=== PATIENT | male | born 1985 | race Caucasian/White ===

== ENCOUNTER 2017-11-03 15:30 | Emergency (ER) | payer MEDICAID, OTHER ==
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
== END 2017-11-03 16:44 | disposition home or self-care (01) ==
LOC: MADERS 15:30
DX: M25.531 Pain in right wrist (principal); I10 Essential (primary) hypertension; Z91.14 Patient's other noncompliance with medication regimen
CPT/HCPCS: 29125

== ENCOUNTER 2019-07-23 19:15 | Emergency (ER) | payer OTHER ==
[2019-07-23] MEDS ORDERED: Amlodipine 5 MG TAB ONE (20:02)
[2019-07-23] MEDS ORDERED: Amoxicillin/Potassium Clav 875 MG TAB ONE (20:02)
== END 2019-07-23 20:08 | disposition home or self-care (01) ==
LOC: MADERS 19:15
DX: K05.30 Chronic periodontitis, unspecified (principal); I10 Essential (primary) hypertension; H66.92 Otitis media, unspecified, left ear
CPT/HCPCS: 99283

== ENCOUNTER 2021-09-01 20:53 | Emergency (ER) | payer OTHER ==
[2021-09-01 21:57] LABS: #Basophils 0.2 thou/uL (0.0-0.2); #Eosinphils 0.8 thou/uL (0.0-0.7); #Monocytes 0.8 thou/uL (0.11-0.59); #Neutrophils 8.1 thou/uL (1.40-6.50); %Basophils 1.4 % (0.0-1.0); %Eosinophils 6.4 % (0.0-10.0); %Lymphocytes 23.4 % (21.0-51.0); %Monocytes 6.4 % (0.0-10.0); %Neutrophils 62.5 % (42.0-75.0); Hemoglobin 18.6 g/dL (14.0-18.0); Mean Corpuscular HGB CONC 33.5 g/dL (32.0-36.0); Mean Corpuscular Hemoglobin 31.6 pg (27.0-31.0); Mean Corpuscular Volume 94.4 fL (78.0-98.0); Platelet Count 304 thou/uL (130-400); RBC Distribution Width 11.4 % (11.5-14.5); Red Blood Cell (RBC) Count 5.89 mill/uL (4.70-6.10)
[2021-09-01] MEDS ORDERED: Sodium Chloride 0.9% 1,000 ML ONE ×2 (21:58→22:59)
[2021-09-01] MEDS ORDERED: methylPREDNISolone Sod Succ/PF 125 MG/2 ML VIAL ONE (21:58)
[2021-09-01 22:14] LABS: ALT (SGPT) 110 U/L (8-55); AST (SGOT) 64 U/L (5-34); Albumin 4.9 g/dL (3.5-5.0); Alkaline Phosphatase 58 U/L (40-110); Anion Gap 17 mmol/L (10-20); BUN (Urea Nitrogen) 11 mg/dL (8.9-20.6); Bilirubin, Total 1.7 mg/dL (0.2-1.2); Calc. Creatinine Clearance 0 mL/min (70-130); Carbon Dioxide 25 mmol/L (22-29); Chloride 104 mmol/L (98-107); Globulin 3.6 g/dL (2.4-3.5); Glucose 116 mg/dL (70-105); Potassium 4.2 mmol/L (3.5-5.1); Protein, Total 8.5 g/dL (6.0-8.3); Sodium 142 mmol/L (136-145)
[2021-09-01 22:15] LABS: Acetaminophen Less than 10.0 mcg/mL (10.0-30.0); Alcohol Less than 10 mg/dL (Less than 10); Magnesium 1.9 mg/dL (1.6-2.6); Salicylate Less than 8.0 mg/dL (15.0-30.0)
[2021-09-01 22:36] LABS: Amphetamine Not Detected (NotDetected); Barbiturates Screen Not Detected (NotDetected); Benzodiazepine Screen Not Detected (NotDetected); Cocaine Metabolite Screen Not Detected (NotDetected); Medtox Control Line Valid? VALID (VALID); Methadone Not Detected (NotDetected); Methamphetamine Not Detected (NotDetected); Opiate Screen Not Detected (NotDetected); Oxycodone Screen Not Detected (NotDetected); Phencyclidine (PCP) Not Detected (NotDetected); THC/Cannabinoid Screen Detected (NotDetected); Tricyclic Screen Detected (NotDetected)
== END 2021-09-02 00:05 | disposition home or self-care (01) ==
LOC: MADERS 20:53
DX: J06.9 Acute upper respiratory infection, unspecified (principal); Z20.822 Contact with and (suspected) exposure to COVID-19; I10 Essential (primary) hypertension; Z79.899 Other long term (current) drug therapy
CPT/HCPCS: 71045; 80053; 80306; 80307; 83605; 83735; 83880; 84484; 85025; 87804; 93005; 94760; 96374; J2930; J7050; J7620; U0003; U0005

== ENCOUNTER 2021-09-23 13:50 | Emergency (ER) | payer OTHER ==
[~2021-09-23 13:50] MED LIST: Iopamidol 370 76% 125 ML VIAL FS ONE; Sodium Chloride 0.9% 100 ML BAG ONE
[2021-09-23] MEDS ORDERED: Ipratropium Bromide 2.5 ml Neb ONE ×3 (14:38→16:20)
[2021-09-23] MEDS ORDERED: methylPREDNISolone Sod Succ/PF 125 MG/2 ML VIAL ONE (14:38)
[2021-09-23 14:43] LABS: #Basophils 0.2 thou/uL (0.0-0.2); #Eosinphils 1.7 thou/uL (0.0-0.7); #Lymphocytes 3.3 thou/uL (1.20-3.40); #Monocytes 0.7 thou/uL (0.11-0.59); #Neutrophils 4.6 thou/uL (1.40-6.50); %Eosinophils 16.1 % (0.0-10.0); %Lymphocytes 31.5 % (21.0-51.0); %Monocytes 6.5 % (0.0-10.0); %Neutrophils 43.9 % (42.0-75.0); Hemoglobin 18.3 g/dL (14.0-18.0); Mean Corpuscular HGB CONC 33.4 g/dL (32.0-36.0); Mean Corpuscular Hemoglobin 31.2 pg (27.0-31.0); Mean Corpuscular Volume 93.5 fL (78.0-98.0); Mean Platelet Volume 10.5 fL (7.4-10.4); Platelet Count 269 thou/uL (130-400); RBC Distribution Width 11.8 % (11.5-14.5); Red Blood Cell (RBC) Count 5.86 mill/uL (4.70-6.10); White Blood Cell (WBC) Count 10.5 thou/uL (4.8-10.8)
[2021-09-23 14:57] LABS: ALT (SGPT) 98 U/L (8-55); AST (SGOT) 48 U/L (5-34); Albumin 4.7 g/dL (3.5-5.0); Alkaline Phosphatase 65 U/L (40-110); Anion Gap 16 mmol/L (10-20); BUN (Urea Nitrogen) 9 mg/dL (8.9-20.6); Bilirubin, Total 1.4 mg/dL (0.2-1.2); Calc. Creatinine Clearance 0 mL/min (70-130); Calcium 9.8 mg/dL (7.8-10.44); Carbon Dioxide 26 mmol/L (22-29); Chloride 101 mmol/L (98-107); Globulin 3.7 g/dL (2.4-3.5); Glucose 131 mg/dL (70-105); Potassium 4.2 mmol/L (3.5-5.1); Protein, Total 8.4 g/dL (6.0-8.3); Sodium 139 mmol/L (136-145)
[2021-09-23] MEDS ORDERED: Amlodipine 5 MG TAB ONE (15:11)
[2021-09-23] MEDS ORDERED: Losartan 25 MG TAB ONE (15:11)
[2021-09-23] MEDS ORDERED: Lactated Ringer's 1,000 ML ONE ×2 (15:11→16:28)
[2021-09-23 16:07] LABS: SARS-CoV-2 NAA Rapid Test Not Detected (NotDetected)
== END 2021-09-23 17:43 | disposition home or self-care (01) ==
LOC: MADERS 13:50
DX: J45.901 Unspecified asthma with (acute) exacerbation (principal); I10 Essential (primary) hypertension; R59.0 Localized enlarged lymph nodes; R94.6 Abnormal results of thyroid function studies; Z20.822 Contact with and (suspected) exposure to COVID-19
CPT/HCPCS: 71045; 71275; 80053; 83880; 84439; 84443; 84484; 85025; 85379; 93005; 94760; 96361; 96374; J2930; J7120; J7612; Q9967

== ENCOUNTER 2021-11-30 15:12 | Emergency (ER) | payer OTHER ==
[2021-11-30] MEDS ORDERED: Sodium Chloride 0.9% 1,000 ML ONE (15:32)
[2021-11-30] MEDS ORDERED: methylPREDNISolone Sod Succ/PF 125 MG/2 ML VIAL ONE (15:32)
[2021-11-30] MEDS ORDERED: Ipratropium Bromide 2.5 ml Neb ONE ×2 (15:37→17:24)
[2021-11-30 16:02] LABS: #Basophils 0.3 thou/uL (0.0-0.2); #Lymphocytes 1.6 thou/uL (1.20-3.40); #Monocytes 0.9 thou/uL (0.11-0.59); #Neutrophils 10.5 thou/uL (1.40-6.50); %Basophils 1.9 % (0.0-1.0); %Eosinophils 6.7 % (0.0-10.0); %Monocytes 6.3 % (0.0-10.0); %Neutrophils 74.1 % (42.0-75.0); Hemoglobin 18.1 g/dL (14.0-18.0); Mean Corpuscular HGB CONC 31.9 g/dL (32.0-36.0); Mean Corpuscular Hemoglobin 31.3 pg (27.0-31.0); Mean Corpuscular Volume 98.3 fL (78.0-98.0); Mean Platelet Volume 9.9 fL (7.4-10.4); Platelet Count 273 thou/uL (130-400); RBC Distribution Width 12.5 % (11.5-14.5); Red Blood Cell (RBC) Count 5.77 mill/uL (4.70-6.10); White Blood Cell (WBC) Count 14.2 thou/uL (4.8-10.8)
[2021-11-30 16:15] LABS: ALT (SGPT) 76 U/L (8-55); AST (SGOT) 42 U/L (5-34); Albumin 4.8 g/dL (3.5-5.0); Alkaline Phosphatase 59 U/L (40-110); Anion Gap 18 mmol/L (10-20); BUN (Urea Nitrogen) 8 mg/dL (8.9-20.6); Bilirubin, Total 1.6 mg/dL (0.2-1.2); CK (CPK) 135 U/L (30-200); Calc. Creatinine Clearance 0 mL/min (70-130); Calcium 9.5 mg/dL (7.8-10.44); Carbon Dioxide 23 mmol/L (22-29); Chloride 102 mmol/L (98-107); Estimated GFR 117; Globulin 3.2 g/dL (2.4-3.5); Glucose 161 mg/dL (70-105); Potassium 4.3 mmol/L (3.5-5.1); Sodium 139 mmol/L (136-145)
[2021-11-30 16:38] LABS: SARS-CoV-2 NAA Rapid Test Not Detected (NotDetected)
== END 2021-11-30 18:52 | disposition home or self-care (01) ==
LOC: MADERS 15:12
DX: J45.901 Unspecified asthma with (acute) exacerbation (principal); I10 Essential (primary) hypertension; E78.00 Pure hypercholesterolemia, unspecified; E07.9 Disorder of thyroid, unspecified; Z20.822 Contact with and (suspected) exposure to COVID-19; Z79.899 Other long term (current) drug therapy
CPT/HCPCS: 36415; 71045; 80053; 82550; 83605; 83880; 84484; 85025; 87040; 87804; 93005; 94760; 96361; 96374; J2930; J7050; J7612; U0002

== ENCOUNTER 2023-01-13 12:17 | Emergency (ER) | payer MEDICAID, OTHER ==
[2023-01-13] MEDS ORDERED: Ipratropium/Albuterol 3 ML NEB ONE (12:39)
[2023-01-13] MEDS ORDERED: predniSONE 20 MG TAB ONE (13:22)
== END 2023-01-13 14:10 | disposition home or self-care (01) ==
LOC: MADERS 12:17
DX: J45.901 Unspecified asthma with (acute) exacerbation (principal); I10 Essential (primary) hypertension; E03.9 Hypothyroidism, unspecified; E78.00 Pure hypercholesterolemia, unspecified; J44.9 Chronic obstructive pulmonary disease, unspecified; Z79.899 Other long term (current) drug therapy
CPT/HCPCS: 71045; 94640; J7512; J7611; J7620

== ENCOUNTER 2023-01-28 21:12 | Emergency (ER) | payer MEDICAID, SELFPAY ==
[~2023-01-28 21:12] MED LIST changes: -Iopamidol 370 76% 125 ML VIAL FS ONE; +Sodium Chloride 0.9% 1,000 ML BAG ONE; -Sodium Chloride 0.9% 100 ML BAG ONE
[2023-01-28] MEDS ORDERED: EPINEPHrine 1 MG/ML VIAL ONE ×2 (21:31→21:33)
[2023-01-28] MEDS ORDERED: methylPREDNISolone Sod Succ/PF 125 MG/2 ML VIAL ONE (21:31)
[2023-01-28] MEDS ORDERED: Ipratropium/Albuterol 3 ML NEB ONE (21:31)
[2023-01-28] MEDS ORDERED: EPINEPHrine 1 MG/10 ML Abboject SYRINGE ONE (21:32)
[2023-01-28] MEDS ORDERED: Magnesium 2 GM/50 ML BAG (IN WATER) ONE (21:38)
[2023-01-28 22:05] LABS: #Basophils 0.3 thou/uL (0.0-0.2); #Lymphocytes 2.7 thou/uL (1.20-3.40); #Monocytes 0.9 thou/uL (0.11-0.59); #Neutrophils 7.7 thou/uL (1.40-6.50); %Basophils 2.2 % (0.0-1.0); %Eosinophils 14.9 % (0.0-10.0); %Lymphocytes 19.7 % (21.0-51.0); %Monocytes 6.3 % (0.0-10.0); %Neutrophils 56.9 % (42.0-75.0); Hematocrit 54.1 % (42.0-52.0); Hemoglobin 18.3 g/dL (14.0-18.0); MDiff Complete? YES; Macrocytosis SLIGHT = 6-15 cells (100X) (0-5/hpf); Mean Corpuscular HGB CONC 33.8 g/dL (32.0-36.0); Mean Corpuscular Hemoglobin 35.3 pg (27.0-31.0); Mean Corpuscular Volume 104.5 fl (78.0-98.0); Mean Platelet Volume 9.5 fL (7.4-10.4); Platelet Adequacy Comment Appears Adequate; Platelet Count 391 10x3/uL (130-400); RBC Distribution Width 12.4 % (11.5-14.5); Red Blood Cell (RBC) Count 5.18 mill/uL (4.70-6.10); White Blood Cell (WBC) Count 13.6 10x3/uL (4.8-10.8)
[2023-01-28 22:09] LABS: ALT (SGPT) 166 U/L (8-55); AST (SGOT) 88 U/L (5-34); Alkaline Phosphatase 56 U/L (40-110); Anion Gap 18 mmol/L (10-20); BUN (Urea Nitrogen) 11 mg/dL (8.9-20.6); Calc. Creatinine Clearance 0 mL/min (70-130); Calcium 10.3 mg/dL (7.8-10.44); Carbon Dioxide 25 mmol/L (22-29); Chloride 100 mmol/L (98-107); Estimated GFR 114; Globulin 3.5 g/dL (2.4-3.5); Glucose 141 mg/dL (70-105); Magnesium 2.1 mg/dL (1.6-2.6); Potassium 5.3 mmol/L (3.5-5.1); Protein, Total 8.5 g/dL (6.0-8.3); Sodium 138 mmol/L (136-145)
[2023-01-28 22:15] LABS: Troponin I Less than 0.010 ng/mL (< 0.028)
[2023-01-28] MEDS ORDERED: LevoFLOXacin 500 MG TAB ONE (23:04)
== END 2023-01-28 23:23 | disposition home or self-care (01) ==
LOC: MADERS 21:12
DX: J45.901 Unspecified asthma with (acute) exacerbation (principal); J20.9 Acute bronchitis, unspecified; E78.00 Pure hypercholesterolemia, unspecified; I10 Essential (primary) hypertension; E03.9 Hypothyroidism, unspecified; Z79.899 Other long term (current) drug therapy
CPT/HCPCS: 71045; 80053; 83735; 83880; 84484; 85025; 85379; 93005; 96361; 96365; 96372; 96375; J0171; J2930; J3475; J7050; J7620

== ENCOUNTER 2023-02-15 19:31 | Emergency (ER) | payer MEDICAID, OTHER ==
[2023-02-15] MEDS ORDERED: Ipratropium/Albuterol 3 ML NEB ONE ×2 (19:34→20:06)
[2023-02-15] MEDS ORDERED: methylPREDNISolone Sod Succ/PF 125 MG/2 ML VIAL ONE ×2 (20:06→20:08)
[2023-02-15] MEDS ORDERED: Sodium Chloride 0.9% 1,000 ML ONE (20:06)
[2023-02-15 20:07] LABS: #Basophils 0.2 thou/uL (0.0-0.2); #Eosinphils 0.9 thou/uL (0.0-0.7); #Lymphocytes 2.8 thou/uL (1.20-3.40); #Monocytes 0.6 thou/uL (0.11-0.59); #Neutrophils 7.7 thou/uL (1.40-6.50); %Basophils 1.6 % (0.0-1.0); %Eosinophils 7.3 % (0.0-10.0); %Lymphocytes 22.7 % (21.0-51.0); %Neutrophils 63.4 % (42.0-75.0); Hematocrit 50.9 % (42.0-52.0); Hemoglobin 16.5 g/dL (14.0-18.0); Mean Corpuscular HGB CONC 32.5 g/dL (32.0-36.0); Mean Corpuscular Hemoglobin 33.6 pg (27.0-31.0); Mean Corpuscular Volume 103.5 fl (78.0-98.0); Mean Platelet Volume 9.8 fL (7.4-10.4); Platelet Count 293 10x3/uL (130-400); Red Blood Cell (RBC) Count 4.92 mill/uL (4.70-6.10); White Blood Cell (WBC) Count 12.2 10x3/uL (4.8-10.8)
[2023-02-15 20:17] LABS: ALT (SGPT) 112 U/L (8-55); AST (SGOT) 72 U/L (5-34); Albumin 4.7 g/dL (3.5-5.0); Alkaline Phosphatase 55 U/L (40-110); Anion Gap 19 mmol/L (10-20); BUN (Urea Nitrogen) 7 mg/dL (8.9-20.6); Bilirubin, Total 1.1 mg/dL (0.2-1.2); Calc. Creatinine Clearance 0 mL/min (70-130); Calcium 9.2 mg/dL (7.8-10.44); Carbon Dioxide 21 mmol/L (22-29); Chloride 107 mmol/L (98-107); Estimated GFR 118; Glucose 174 mg/dL (70-105); Magnesium 1.9 mg/dL (1.6-2.6); Potassium 4.9 mmol/L (3.5-5.1); Protein, Total 7.7 g/dL (6.0-8.3); Sodium 142 mmol/L (136-145)
[2023-02-15 20:27] LABS: Base Excess-Venous -0.2 mmol/L (-2.0 to 3.0); Bicarbonate (HCO3v) 24.9 mmol/L (22.0-28.0); CO2 Tension (PvCO2) 41.4 mmHg (42.0-51.0); Calcium, Ionized 1.16 mmol/L (1.15-1.33); Chloride 109 mmol/L (98-107); Hemoglobin - Calc 17.3 g/dL (14.0-18.0); Potassium 4.5 mmol/L (3.5-5.1); Sodium 145 mmol/L (138-145); T. Carbon Dioxide 26.2 mmol/L (22.0-28.0); vO2 Saturation-calc 99.5 % (60.0-85.0)
== END 2023-02-15 21:57 | disposition home or self-care (01) ==
LOC: MADERS 19:31
DX: J45.901 Unspecified asthma with (acute) exacerbation (principal); J10.1 Influenza due to other identified influenza virus with other respiratory manifestations; R06.03 Acute respiratory distress
CPT/HCPCS: 71045; 80053; 82330; 82803; 83735; 83880; 85025; 87804; 93005; 96361; 96374; J2930; J7050; J7620

== ENCOUNTER 2023-02-20 21:25 | Emergency (ER) | payer OTHER ==
[2023-02-20] MEDS ORDERED: Ipratropium/Albuterol 3 ML NEB ONE (21:32)
[2023-02-20] MEDS ORDERED: methylPREDNISolone Sod Succ/PF 125 MG/2 ML VIAL ONE (22:01)
[2023-02-20 22:06] LABS: #Basophils 0.1 thou/uL (0.0-0.2); #Eosinphils 0.5 thou/uL (0.0-0.7); #Lymphocytes 4.1 thou/uL (1.20-3.40); #Monocytes 0.6 thou/uL (0.11-0.59); #Neutrophils 8.6 thou/uL (1.40-6.50); %Basophils 1.1 % (0.0-1.0); %Eosinophils 3.6 % (0.0-10.0); %Lymphocytes 29.4 % (21.0-51.0); %Monocytes 4.5 % (0.0-10.0); %Neutrophils 61.5 % (42.0-75.0); Hematocrit 49.6 % (42.0-52.0); Hemoglobin 17.1 g/dL (14.0-18.0); Mean Corpuscular HGB CONC 34.5 g/dL (32.0-36.0); Mean Corpuscular Hemoglobin 34.1 pg (27.0-31.0); Mean Platelet Volume 10.9 fL (7.4-10.4); Platelet Count 277 10x3/uL (130-400); RBC Distribution Width 11.4 % (11.5-14.5); Red Blood Cell (RBC) Count 5.02 mill/uL (4.70-6.10); White Blood Cell (WBC) Count 13.9 10x3/uL (4.8-10.8)
[2023-02-20 22:18] LABS: Base Excess-Venous 4.6 mmol/L (-2.0 to 3.0); CO2 Tension (PvCO2) 41.2 mmHg (42.0-51.0); Calcium, Ionized 1.12 mmol/L (1.15-1.33); Chloride 96 mmol/L (98-107); Hemoglobin - Calc 17.3 g/dL (14.0-18.0); Potassium 3.6 mmol/L (3.5-5.1); Sodium 140 mmol/L (138-145); T. Carbon Dioxide 30.3 mmol/L (22.0-28.0); vO2 Saturation-calc 86.2 % (60.0-85.0)
[2023-02-20 22:27] LABS: ALT (SGPT) 86 U/L (8-55); AST (SGOT) 63 U/L (5-34); Albumin 4.4 g/dL (3.5-5.0); Alkaline Phosphatase 43 U/L (40-110); Anion Gap 19 mmol/L (10-20); BUN (Urea Nitrogen) 17 mg/dL (8.9-20.6); Bilirubin, Total 1.8 mg/dL (0.2-1.2); Calc. Creatinine Clearance 0 mL/min (70-130); Calcium 9.2 mg/dL (7.8-10.44); Carbon Dioxide 23 mmol/L (22-29); Chloride 98 mmol/L (98-107); Estimated GFR 114; Glucose 185 mg/dL (70-105); Lipase 32 U/L (8-78); Magnesium 1.8 mg/dL (1.6-2.6); Potassium 3.7 mmol/L (3.5-5.1); Protein, Total 7.4 g/dL (6.0-8.3); Sodium 136 mmol/L (136-145)
[2023-02-20] MEDS ORDERED: Sodium Chloride 0.9% 100 ML ONE (22:29)
[2023-02-20] MEDS ORDERED: Sodium Chloride 0.9% 250 ML 250 ML ONE (22:29)
[2023-02-20] MEDS ORDERED: Azithromycin 500 MG VIAL ONE (22:29)
[2023-02-20] MEDS ORDERED: cefTRIAXone (ROCEPHIN) 2 GM VIAL ONE (22:29)
== END 2023-02-21 00:18 | disposition home or self-care (01) ==
LOC: MADERS 21:25
DX: J44.1 Chronic obstructive pulmonary disease with (acute) exacerbation (principal); J18.9 Pneumonia, unspecified organism; J11.1 Influenza due to unidentified influenza virus with other respiratory manifestations; I10 Essential (primary) hypertension
CPT/HCPCS: 71045; 80053; 82330; 82803; 83605; 83690; 83735; 85025; 85379; 87040; 93005; 96365; 96367; 96375; J0456; J0696; J2930; J3490; J7050; J7620

== ENCOUNTER 2023-03-11 19:41 | Emergency (ER) | payer OTHER ==
[2023-03-11] MEDS ORDERED: Ipratropium/Albuterol 3 ML NEB ONE (20:41)
[2023-03-11] MEDS ORDERED: ALPRAZolam 0.5 MG TAB ONE (20:42)
== END 2023-03-11 22:00 | disposition home or self-care (01) ==
LOC: MADERS 19:41
DX: R06.00 Dyspnea, unspecified (principal); J45.909 Unspecified asthma, uncomplicated; I10 Essential (primary) hypertension
CPT/HCPCS: J7620

== ENCOUNTER 2025-03-25 18:59 | Emergency (ER) | payer OTHER, SELFPAY ==
[2025-03-25 19:36] LABS: AST (SGOT) 250 U/L (11-34); Albumin 2.2 g/dL (3.1-4.5); Alkaline Phosphatase 160 U/L (40-110); Anion Gap 17 mmol/L (10-20); BUN (Urea Nitrogen) 28 mg/dL (8.9-20.6); Calc. Creatinine Clearance 0 mL/min (70-130); Calcium 8.8 mg/dL (7.8-10.44); Carbon Dioxide 24 mmol/L (22-29); Chloride 98 mmol/L (98-107); Globulin 5.1 g/dL (2.4-3.5); Glucose 146 mg/dL (70-105); Potassium 3.2 mmol/L (3.5-5.1); Sodium 136 mmol/L (136-145)
[2025-03-25 19:37] LABS: ALT (SGPT) 96 U/L (Less than 45); AST (SGOT) 244 U/L (11-34); Albumin 2.1 g/dL (3.1-4.5); Alkaline Phosphatase 157 U/L (40-110)
[2025-03-25 19:41] LABS: INR-International Normal Ratio 1.9; Prothrombin Time 21.7 sec (12.0-14.7)
[2025-03-25 19:47] LABS: Troponin I 0.014 ng/mL (< 0.028)
[2025-03-25 19:52] LABS: Hematocrit 40.2 % (42.0-52.0); Hemoglobin 13.3 g/dL (14.0-18.0); Mean Corpuscular Hemoglobin 37.3 pg (27.0-31.0); Mean Corpuscular Volume 113.3 fl (78.0-98.0); Platelet Count 484 10x3/uL (130-400); Red Blood Cell (RBC) Count 3.55 mill/uL (4.70-6.10); White Blood Cell (WBC) Count 21.8 10x3/uL (4.8-10.8)
[2025-03-25 19:57] LABS: Acetaminophen Less than 10 mcg/mL (Less than 10)
[2025-03-25 20:43] LABS: CK (CPK) 11 U/L (30-200); Lipase 67 U/L (8-78); Magnesium 2.5 mg/dL (1.6-2.6)
[2025-03-25 20:44] LABS: Salicylate Less than 8.0 mg/dL (Less than 8.0)
[2025-03-25 20:49] LABS: ALT (SGPT) 96 U/L (Less than 45); Bilirubin, Total 36.8 mg/dL (0.3-1.2)
[2025-03-25 20:55] LABS: Bilirubin, Direct Greater than 10.0 mg/dL (0.1-0.3); Bilirubin, Total 36.8 mg/dL (0.3-1.2)
[2025-03-25] MEDS ORDERED: metroNIDAZOLE 500 MG (100 mL) BAG ONE (21:10)
[2025-03-25 22:20] LABS: MDiff Complete? YES; Manual Diff?? YES
[2025-03-25 22:21] LABS: Macrocytosis MODERATE=16-30 cells (100X) (0-5/hpf); Poikilocytosis SLIGHT = 6-15 cells (100X) (0-5/hpf)
[2025-03-25 22:22] LABS: Platelet Adequacy Comment Appears Increased
[2025-03-26] MEDS ORDERED: Furosemide 20 MG (2 mL) VIAL ONE (00:03)
[2025-03-26] MEDS ORDERED: Orphenadrine Citrate 60 MG/2 ML VIAL ONE (00:12)
[2025-03-26 01:23] LABS: Glucose, Urine (Dipstick) 100 mg/dL (Negative); Leukocyte Negative (Negative); Protein, Urine (Dipstick) Negative (Neg-Trace); Specific Gravity, Urine 1.015 (1.005-1.030)
[2025-03-26 01:31] LABS: Bacteria/HPF Rare-Few HPF (None Seen); CAUTI Indications for Culture Pelvic or flank pain; Mucous/LPF Rare LPF (<2+); RBC/HPF 0-3 HPF (0-3); WBC/HPF 0-3 HPF (0-3)
[2025-03-26 01:32] LABS: Cocaine Metabolite Screen Negative (Negative); THC/Cannabinoid Screen Negative (Negative); Tricyclic Screen PRELIM POSITIVE (Negative)
[2025-03-26 01:33] LABS: Urine Culture Reflex No No
== END 2025-03-26 02:44 | disposition short-term general hospital (02) ==
LOC: MADERS 18:59
DX: N17.9 Acute kidney failure, unspecified (principal); K80.00 Calculus of gallbladder with acute cholecystitis without obstruction; K72.90 Hepatic failure, unspecified without coma; E86.0 Dehydration; E88.09 Other disorders of plasma-protein metabolism, not elsewhere classified; E80.6 Other disorders of bilirubin metabolism; D68.9 Coagulation defect, unspecified; F10.20 Alcohol dependence, uncomplicated; R60.1 Generalized edema; F17.290 Nicotine dependence, other tobacco product, uncomplicated; I10 Essential (primary) hypertension
CPT/HCPCS: 36415; 71045; 71275; 74177; 80053; 80306; 80307; 81001; 82550; 83605; 83690; 83735; 83880; 84484; 85025; 85610; 93005; 96365; 96366; 96367; 96375; J0692; J1940; J2060; J2360; J2919; P9047